=== PATIENT | female | born 1995 | race Caucasian/White ===

== ENCOUNTER → 2018-10-29 | Outpatient (CLI) | payer MEDICAID ==
[~2018-10-29] MED LIST: ACYC200C PO; FERR-47 PO; PERM60CR10 TOP; PREN-46 PO; birth control PO
--- NOTE | 2018-10-29 12:11 | Diagnostic Imaging Report ---
INDICATION: dating. FINDINGS: There is an intrauterine gestational sac containing a pole. The crown/rump measures approximately 3 mm, consistent with a 6 week 0 day gestation. The heart rate was detected at 102 BPM. There is a yolk sac present. No perigestational sac hemorrhage is seen. The gestational sac shape is within normal limits. Adnexal evaluation demonstrates the ovaries to be unremarkable. There is blood flow to both ovaries. There is no free fluid. IMPRESSION: Single live IUP of approximately 6 weeks gestational age. The estimated date of confinement sonographically is 06/21/2019. Dictated by: Dictated on workstation # [id number]
== END ==
LOC: RAD 10:29
PROVIDERS: ATTEND Family Medicine
DX: Z34.91 Encounter for supervision of normal pregnancy, unspecified, first trimester (principal); Z3A.01 Less than 8 weeks gestation of pregnancy
CPT/HCPCS: 76801; 76817

== ENCOUNTER → 2019-01-25 | Outpatient (CLI) | payer MEDICAID ==
--- NOTE | 2019-01-25 16:51 | Diagnostic Imaging Report ---
INDICATION: survey. TECHNIQUE: Multiple real-time grayscale images were obtained over the gravid uterus. COMPARISON: 10/29/2018. FINDINGS: There is a single live fetus in a cephalic presentation. heart rate was recorded at 147 beats per minute. Placenta is anterior. Amniotic fluid volume appears normal. survey demonstrates kidneys, bladder, and stomach to be unremarkable. brain is unremarkable. There is a four-chamber heart. There is a three-vessel cord with normal insertion. The spine is unremarkable. Maternal cervical length is 3.9 cm. Biometrical measurements are as follows: Biparietal 4.39 cm, age 19 weeks 2 days. Head circumference 15.99 cm, age 18 weeks 6 days. Abdominal circumference 12.2 cm, age 18 weeks 0 days. Femur length 2.84 cm, age 18 weeks 5 days. Sonographic estimate age: 18 weeks 5 days. Sonographic estimated date of delivery: 06/23/2019. Estimated Weight: 236 gm (+/- 34 gm). LMP percentile: 14%. heart rate: 147 beats per minute. number: 1 of 1. IMPRESSION: Single live IUP of approximately 18 weeks 5 days gestational age showing normal interval growth when compared with prior exam. No complicating features are seen. Dictated by: Dictated on workstation # [id number]
== END ==
LOC: RAD 12:57
PROVIDERS: ATTEND Family Medicine
DX: Z36.89 Encounter for other specified antenatal screening (principal); Z3A.18 18 weeks gestation of pregnancy
CPT/HCPCS: 76805

== ENCOUNTER 2019-06-13 23:00 | Inpatient (IN) | payer MEDICAID ==
[~2019-06-13] VITALS: Ht 160 cm; Wt 73.6 kg
--- NOTE | 2019-06-13 23:05 | NUR ---
CECY MCDANIEL presented to unit via wheelchair from ED, accompanied by s/o, with c/o CONTRACTIONS. CECY MCDANIEL weighed, gowned, voided, and to bed. EFHM and TOCO applied, VS taken. CECY MCDANIEL oriented to bed controls, call light, TV, heat, and A/C controls.
[2019-06-13 23:20] VITALS: BP 139/77
[2019-06-13] MEDS ORDERED: PREN-53 PO (23:48)
[2019-06-13] MEDS ORDERED: omeprazole (23:51)
[2019-06-13] MEDS ORDERED: D5 LR IV SOLUTION 1,000 ML IV ONE (23:53)
[2019-06-14] VITALS (52 sets, daily range): BP systolic 100–154; BP diastolic 54–92
[2019-06-14] MEDS ORDERED: MINERAL OIL CONCENTRATE 99.9% 15 ML UDC TOP PRN (00:15)
[2019-06-14] MEDS: D5 LR IV SOLUTION 1,000 ML IV SCH ×2 (00:15→07:55)
[2019-06-14 00:24] LABS: BASOPHILS % (AUTO) 0 % (0-10); EOSINOPHILS # (AUTO) 0.1 10^3/uL (0.0-0.3); EOSINOPHILS % (AUTO) 1 % (0-10); HEMATOCRIT 33 % (35-52); HEMOGLOBIN 11.2 G/DL (11.5-16.0); LYMPHOCYTES # (AUTO) 2.8 X 10^3 (1.0-4.0); LYMPHOCYTES % (AUTO) 24 % (12-44); MEAN CORPUSCULAR HEMOGLOBIN 28 PG (25-34); MEAN CORPUSCULAR HGB CONC 34 G/DL (32-36); MEAN CORPUSCULAR VOLUME 82 FL (80-99); MEAN PLATELET VOLUME 10.6 FL (7.4-10.4); MONOCYTES # (AUTO) 0.7 X 10^3 (0.0-1.0); MONOCYTES % (AUTO) 6 % (0-12); NEUTROPHILS # (AUTO) 7.8 X 10^3 (1.8-7.8); NEUTROPHILS % (AUTO) 69 % (42-75); PLATELET COUNT 196 10^3/uL (130-400); RED CELL DISTRIBUTION WIDTH 13.2 % (10.0-14.5); WHITE BLOOD COUNT 11.4 10^3/uL (4.3-11.0)
[2019-06-14] MEDS ORDERED: CATHETER FLUSH 10 ML SYR IV SCH ×2 (06:00→22:00)
--- NOTE | 2019-06-14 07:05 | History & Physical-OB ---
OB - Chief Complaint & HPI Date/Time Date of Admission: Date of Admission: Jun 14, 2019 at 00:00 Date seen by a Provider: Jun 14, 2019 Time Seen by a Provider: 07:05 Chief Complaint/History OB-Reason for Admission/Chief: Onset of Labor Hx : 3 Hx Para: 2 Expected Date of Delivery: Jun 21, 2019 Gestational Age in Weeks: 39 Gestational Age in Days: 0 Admission Nurse Assessment Rev: Yes History of Labs GBS negative Allergies and Home Medications Allergies Coded Allergies: No Known Drug Allergies (Unverified , 01/25/14) Home Medications [id number]/Iron Fumarate/FA/Dss 1 Each Tablet, 1 EACH PO DAILY, (Reported) [omeprazole] , DAILY, (Reported) Patient Home Medication List Home Medication List Reviewed: Yes OB - History Hx of Present Care: Yes Ultrasounds: Normal mid trimester US Obstetrical Complications: None Medical Complications: None Obstetrical History Hx Termination: No Hx Multiple Gestation: No Hx Stillbirth: No Hx Complication: No Hx Induced Hypertens: No Hx Maternal Gestational Diabet: No Delivery History Hx Dystocia: No Hx Large For Gestational Age I: No Hx Small for Gestational Age I: No Hx Section: No Hx Vaginal Delivery Post C-Sec: No Hx Blood Disorders: No Adverse Rxn to Tranfusion: No Patient Past Medical History No chronic medical problems Social History/Family History HIV/AIDS: No Sexually Transmitted Disease: No Alcohol Use: Denies Use Recreational Drug Use: No Immunizations Tetanus Booster (TDap): Unknown OB - Admission Exam Physical Exam Vitals: Vital Signs 06/14/19 06:00 Pulse 73 Resp 16 B/P (MAP) 100/54 (69) HEENT: Moist Membranes Heart: Rhythm Normal Lungs: Clear Abdomen: Gravid Cervical Dilatation: 3cm Effacement: 75% Station: -3 Membranes: Intact Heart Rate: 140's Accelerations: Accelerations Present Short Term Variability: Present Halfway Variability: Average (6-25) Contractions on Admission: 6-10 Minutes Apart Intensity: Mild Labs Laboratory Tests Test 06/14/19 00:15 Range/Units White Blood Count 11.4 H 4.3-11.0 10^3/uL Red Blood Count 4.07 L 4.35-5.85 10^6/uL Hemoglobin 11.2 L 11.5-16.0 G/DL Hematocrit 33 L 35-52 % Mean Corpuscular Volume 82 80-99 FL Mean Corpuscular Hemoglobin 28 25-34 PG Mean Corpuscular Hemoglobin Concent 34 32-36 G/DL Red Cell Distribution Width 13.2 10.0-14.5 % Platelet Count 196 130-400 10^3/uL Mean Platelet Volume 10.6 H 7.4-10.4 FL Neutrophils (%) (Auto) 69 42-75 % Lymphocytes (%) (Auto) 24 12-44 % Monocytes (%) (Auto) 6 0-12 % Eosinophils (%) (Auto) 1 0-10 % Basophils (%) (Auto) 0 0-10 % Neutrophils # (Auto) 7.8 1.8-7.8 X 10^3 Lymphocytes # (Auto) 2.8 1.0-4.0 X 10^3 Monocytes # (Auto) 0.7 0.0-1.0 X 10^3 Eosinophils # (Auto) 0.1 0.0-0.3 10^3/uL Basophils # (Auto) 0.0 0.0-0.1 10^3/uL OB - Assessment/Plan/Diagnosis Assessment Assessment: active labor (at 39 weeks gestation) Admission Dx 1. IUP at term 39 weeks gestation Admission Status: Inpatient Order (span 2 midnights) Reason for Inpatient Admission: L&D Plan Plan: Other Other Plan -plan on AROM -pitocin as needed BROOKLYN CEE MD Jun 14, 2019 07:05
[2019-06-14] MEDS ORDERED: OXYTOCIN/NORMAL SALINE 500 ML IV ONE (07:41)
[2019-06-14] MEDS ORDERED: OXYTOCIN/NORMAL SALINE 500 ML IV SCH ×2 (07:42→15:20)
[2019-06-14] MEDS ORDERED: ONDANSETRON 4 MG/2 ML (SDV) Z0FRAN ONE (09:39)
[2019-06-14] MEDS ORDERED: ONDANSETRON 4 MG/2 ML (SDV) Z0FRAN IVP PRN (09:45)
[2019-06-14] MEDS ORDERED: BUTORPHANOL INJ 2 MG/ML (STADOL) VIAL ONE (10:56)
[2019-06-14] MEDS ORDERED: BUTORPHANOL INJ 2 MG/ML (STADOL) VIAL IV PRN (11:00)
[2019-06-14] MEDS ORDERED: SUFENTA 0.6MCG/ML BUPIVA 0.125 100 ML ONE (12:29)
[2019-06-14] MEDS ORDERED: BUPIVACAINE 0.25% 30 ML (SENSORCAINE) VIAL ONE (12:45)
[2019-06-14] MEDS ORDERED: fentaNYL INJECTION 100 MCG/2 ML AMP ONE (12:46)
--- NOTE | 2019-06-14 12:53 | NUR ---
1253 Dr. YIP here for epidural placement. Procedure explained, consent reviewed and signed by anesthesia. Questions answered to patient's satisfaction. Time out taken to verify correct patient/procedure. 1255 Patient up to side of bed, assisted into sitting position. 1258 Betadine prep done x3 and sterile drape applied. 1301 Local done, see anesthesia record. 1314 Test dose given, see anesthesia record for drug and dosage. Epidural catheter secured in place. Epidural placement complete. 1319 Assisted back into bed, monitors adjusted. Epidural dosed, see anesthesia record. Epidural of Sufenta/Bupvicaine @12cc/hr stated per pump. Patient tolerated procedure well.
[2019-06-14] MEDS ORDERED: LACTATED RINGERS 1,000 ML IV ONE (13:28)
[2019-06-14] MEDS ORDERED: NALOXONE 0.4 MG/ML 1 ML (NARCAN) VIAL IV PRN (13:30)
[2019-06-14] MEDS ORDERED: CATHETER FLUSH 10 ML SYR IV PRN (13:30)
[2019-06-14] MEDS ORDERED: ONDANSETRON 4 MG/2 ML (SDV) Z0FRAN IV PRN (13:30)
[2019-06-14] MEDS ORDERED: diphenhydrAMINE 50 MG/ML INJ (BENADRYL) IV PRN (13:30)
[2019-06-14] MEDS ORDERED: EPIDURAL (SUFENTA 0.6MCG/ML BUPIVA 0.125%) 100 ML BAG EPI SCH (13:30)
[2019-06-14] MEDS ORDERED: MEASLES,MUMPS,RUBELLA 1 EA INJ SQ ONE (15:30)
[2019-06-14] MEDS ORDERED: BENZOCAINE/MENTHOL (DERMOPLAST) 56 ML CAN TP PRN (15:30)
[2019-06-14] MEDS ORDERED: WITCH HAZEL(TUCKS) 40 EA JAR TOP PRN (15:30)
[2019-06-14] MEDS ORDERED: TETANUS,DIPTH,PERTUSS P/F (BOOSTRIX) 0.5 ML VIAL IM ONE (15:30)
--- NOTE | 2019-06-14 15:34 | OB Labor & Delivery Record ---
L&D History Date of Service Date of Service: Jun 14, 2019 History Expected Date of Delivery: Jun 21, 2019 Gestational Age in Weeks: 39 Hx : 3 Hx Para: 2 Complications Events: Routine care Operative Indications (Cesarea: N/A-Vaginal Delivery Intrapartal Events: None L&D Stage1 Stage One Onset of Labor - Date: Jun 14, 2019 Onset of Labor - Time: 07:15 Monitors and Tracing Monitor Mode: Internal Heart Rate: 135 Monitor Accelerations: Uniform Station: -2 Vital Signs VS - Last 72 Hours, by Label 06/13/19 06/14/19 06/14/19 06/14/19 23:20 01:25 03:00 04:00 Pulse 87 68 71 Resp 16 16 B/P (MAP) 139/77 (97) 120/68 (85) 100/57 (71) 06/14/19 06/14/19 06/14/19 06/14/19 05:00 06:00 07:00 07:30 Temp 97.3 Pulse 111 73 71 67 Resp 16 16 16 18 B/P (MAP) 115/68 (84) 100/54 (69) 121/73 (89) 115/69 (84) O2 Delivery Room Air 06/14/19 06/14/19 06/14/19 06/14/19 08:00 08:15 08:30 08:45 Pulse 67 71 75 80 Resp 18 18 18 18 B/P (MAP) 113/70 (84) 123/78 (93) 123/80 (94) 121/79 (93) O2 Delivery Room Air Room Air Room Air Room Air 06/14/19 06/14/19 06/14/19 06/14/19 09:00 09:15 09:30 09:45 Temp 97.6 Pulse 80 73 70 72 Resp 18 18 18 18 B/P (MAP) 125/81 (96) 120/79 (93) 143/87 (105) 129/82 (98) O2 Delivery Room Air Room Air Room Air Room Air 06/14/19 06/14/19 06/14/19 06/14/19 10:00 10:15 10:30 10:45 Pulse 78 77 71 80 Resp 18 18 18 18 B/P (MAP) 117/60 (79) 116/58 (77) 112/68 (83) 108/67 (81) O2 Delivery Room Air Room Air Room Air Room Air 06/14/19 11:00 Pulse 68 Resp 18 B/P (MAP) 110/83 (92) O2 Delivery Room Air Signs of Distress by FHT Signs of Distress no Rupture of Membranes Spontaneous Ruture of Membrane: No Amniotic Membrane Rupture Time: 0712 Amniotic Membrane Fluid Desc.: Clear Induction/Anesthesia Epidural Cath Placement - Time: 1313 L&D Stage2 Stage Two Stage II Date: Jun 14, 2019 Stage II Time: 13:47 Monitors and Tracing Monitor Mode: Internal Heart Rate: 135 Monitor Accelerations: Uniform Monitor Decelerations: Early Director Of Development Variability: Average (6-10) Short Term Variability: Present Position: Left Occiput Anterior Presentation: Vertex Signs of Distress by FHT Signs of Distress no Cord Descript/Complications Cord Vessel Description: 3 Vessels Delivery Type Delivery Method: Spontaneous Vaginal Anterior Shoulder: Left Episiotomy/Perineal Laceration Laceraction(s)/Extensions: No Condition of Infant Delivery 1 minute Comment: 8 5 minute Comment: 9 Condition of Condition of : Living Exam: No Observed Abnormalities Resuscitation Resuscitation: N/A - Spontaneous Resp L&D Stage3 Stage Three Stage III Date: Jun 14, 2019 Stage III Time: 13:52 Pictocin Pitocin Administration mu/min: 6 Pitocin ml/hr: 6 Pitocin Administration Comment: 0859 PITOCIN INCREASED. Placenta Delivery Placenta Delivery: Spontaneous Delivery Summary Summary Estimated blood loss (mL): 100 Condition of Delivery Examined: Cervix Examined Post Hemorrhage: No BROOKLYN CEE MD Jun 14, 2019 15:34
[2019-06-14] MEDS: IBUPROFEN 600 MG (MOTRIN) TAB PO SCH ×2 (17:18→23:39)
--- NOTE | 2019-06-14 17:41 | NUR ---
REFER TO LABOR FLOW SHEET.
[2019-06-14] MEDS: DOCUSATE SODIUM 100 MG (COLACE) CAP PO SCH (20:09)
[2019-06-15 04:05] VITALS: BP 114/55
[2019-06-15] MEDS: IBUPROFEN 600 MG (MOTRIN) TAB PO SCH (05:43)
[2019-06-15 06:15] LABS: BASOPHILS % (AUTO) 0 % (0-10); EOSINOPHILS # (AUTO) 0.1 10^3/uL (0.0-0.3); EOSINOPHILS % (AUTO) 1 % (0-10); HEMATOCRIT 34 % (35-52); HEMOGLOBIN 11.2 G/DL (11.5-16.0); LYMPHOCYTES # (AUTO) 3.2 X 10^3 (1.0-4.0); LYMPHOCYTES % (AUTO) 26 % (12-44); MEAN CORPUSCULAR HEMOGLOBIN 27 PG (25-34); MEAN CORPUSCULAR HGB CONC 33 G/DL (32-36); MEAN CORPUSCULAR VOLUME 83 FL (80-99); MEAN PLATELET VOLUME 11.2 FL (7.4-10.4); MONOCYTES # (AUTO) 0.7 X 10^3 (0.0-1.0); MONOCYTES % (AUTO) 6 % (0-12); NEUTROPHILS # (AUTO) 8.3 X 10^3 (1.8-7.8); NEUTROPHILS % (AUTO) 67 % (42-75); PLATELET COUNT 161 10^3/uL (130-400); RED CELL DISTRIBUTION WIDTH 13.2 % (10.0-14.5); WHITE BLOOD COUNT 12.4 10^3/uL (4.3-11.0)
--- NOTE | 2019-06-15 07:13 | Anesthesia-Regional Post-Op ---
Regional Patient Condition Mental Status: Alert, Oriented x3 Circulation: Same as Pre-Op Headache: Absent Sensation: Full Recovery Motor Block: Absent Post Op Complications Complications None Follow Up Care/Instructions Patient Instructions None needed. Anesthesia/Patient Condition Patient is doing well, no complaints, stable vital signs, no apparent adverse anesthesia problems. No complications reported per nursing. GABRIELA RINCON CRNA Jun 15, 2019 07:13
[2019-06-15 08:30] VITALS: BP 115/57
[2019-06-15] MEDS ORDERED: TETANUS,DIPTH,PERTUSS P/F (BOOSTRIX) 0.5 ML VIAL IM ONE (08:35)
[2019-06-15] MEDS: ACETAMINOPHEN 500 MG TAB (TYLENOL) PO SCH ×2 (08:36→15:11)
[2019-06-15] MEDS: DOCUSATE SODIUM 100 MG (COLACE) CAP PO SCH (08:36)
[2019-06-15 12:25] VITALS: BP 121/70
--- NOTE | 2019-06-15 16:46 | Discharge Summary ---
Diagnosis/Chief Complaint Date of Admission Jun 14, 2019 at 00:00 Date of Discharge June 15, 2019 Discharge Date: Jun 15, 2019 Discharge Time: 17:00 Admission Diagnosis Admission Diagnosis 1. IUP at 39wks Discharge Diagnosis 1. IUP at 39wks Reason Hospital Visit 24-year-old 3 now term 3 who initially presented to labor and delivery at 39 weeks gestation for induction of labor. Patient had favorable cervix. Her care was essentially unremarkable. Discharge Summary-OBS Procedures 1. Epidural per anesthesia 2. Discharge Physical Examination Allergies: Coded Allergies: No Known Drug Allergies (Unverified , 01/25/14) Vitals & I&Os Vital Signs Date Time Temp Pulse Resp B/P (MAP) Pulse Ox O2 Delivery O2 Flow Rate FiO2 06/15/19 12:25 97.8 79 16 121/70 (87) 99 Room Air General Appearance: No Acute Distress Cardiovascular: Regular Rate Abdominal: Soft (with uterus firm) Hospital Course Was the Problem List Reviewed?: Yes Following admission patient underwent amniotomy with scalp electrode. P atient continued to contract and required low-dose Pitocin augmentation. She did receive epidural per anesthesia with excellent pain control during the course of labor. Ultimately she went on to deliver a term viable female over an intact perineum. Following delivery patient underwent routine care orders. She had no complications during the remainder of hospital stay. She tolerated regular diet. She had no shortness of breath or leg pain. Her hemoglobin the day after delivery was 11.2 compared to admission hemoglobin of 11.2. She was felt ready for dismissal during the afternoon of day number 1. All questions answered and she will follow up in 6 weeks. Discharge Instructions to patient/family Please see electronic discharge instructions given to patient. Discharge Medications Reviewed and agree with Discharge Medication list on patient's Discharge Instruction sheet Clinical Quality Measures DVT/VTE Risk/Contraindication: Risk Factor Score Per Nursin RFS Level Per Nursing on Admit: 1=Low/No VTE PPX BROOKLYN CEE MD Jun 15, 2019 16:45
== END 2019-06-15 16:15 | disposition home or self-care (01) | DRG 807 ==
LOC: WSo 23:00 → LDRP 23:00 → WSo 06-14 → LDRP 06-14
PROVIDERS: ADMIT Family Medicine; ATTEND Family Medicine
PROC: 10E0XZZ Delivery of Products of Conception, External Approach (ICD-10-PCS; principal; 2019-06-14)
DX: O80 Encounter for full-term uncomplicated delivery (principal); Z37.0 Single live birth; Z3A.39 39 weeks gestation of pregnancy; Z23 Encounter for immunization
CPT/HCPCS: 36415; 85025; 86850; 86900; 86901; 90715; 99212

== ENCOUNTER → 2022-08-12 14:35 | Inpatient (IN) | payer MEDICAID ==
[2022-08-11] VITALS (20 sets, daily range): BP systolic 115–150; BP diastolic 65–90
--- NOTE | 2022-08-11 06:53 | History & Physical-OB ---
OB - Chief Complaint & HPI Date/Time Date of Admission: Date of Admission: Aug 11, 2022 at 06:06 Date seen by a Provider: Aug 11, 2022 Time Seen by a Provider: 06:45 Chief Complaint/History OB-Reason for Admission/Chief: Induction of Labor Hx : 4 Hx Para: 3 Expected Date of Delivery: Aug 17, 2022 Gestational Age in Weeks: 39 Gestational Age in Days: 1 Admission Nurse Assessment Rev: Yes History of Labs GBS positive Allergies and Home Medications Allergies Coded Allergies: No Known Drug Allergies (Unverified , 01/25/14) Patient Home Medication List Home Medication List Reviewed: Yes [id number]/Iron Fumarate/FA/Dss ( 19 Tablet) 1 Each Tablet, 1 EACH PO DAILY, (Reported) Entered as Reported by: KENN SEGUNDO on 06/13/19 [id number] [omeprazole] , DAILY, (Reported) Entered as Reported by: KENN SEGUNDO on 06/13/19 8051 OB - History Hx of Present Care: Yes Ultrasounds: Normal mid trimester US Obstetrical Complications: None Medical Complications: None Obstetrical History Hx Termination: No Hx Multiple Gestation: No Hx Stillbirth: No Hx Complication: No Hx Induced Hypertens: No Hx Maternal Gestational Diabet: No Delivery History Hx Dystocia: No Hx Large For Gestational Age I: No Hx Small for Gestational Age I: No Hx Section: No Hx Vaginal Delivery Post C-Sec: No Hx Blood Disorders: No Adverse Rxn to Tranfusion: No Patient Past Medical History No chronic medical problems Immunizations Tetanus Booster (TDap): Unknown OB - Admission Exam Physical Exam HEENT: Moist Membranes Heart: Rhythm Normal Lungs: Clear Abdomen: Gravid Cervical Dilatation: 1cm Effacement: 50% Station: -3 Membranes: Intact Heart Rate: 130's Accelerations: Accelerations Present Short Term Variability: Present Contractions on Admission: >10 Minutes Apart Intensity: Mild Holland Scoring Tool (Modified) Dilation (cm): 1-2cm (1) Effacement (%): 31-51% (1) Descent/Station: -3 (0) Cervix Consistency: Medium(1) Cervix Position: Middle/Mid-Position (1) Add 1 point for: Each previous vaginal delivery (1) Holland Score: 7 OB - Assessment/Plan/Diagnosis Assessment Assessment: induction of labor Admission Dx 1. IUP at term 39w1d Admission Status: Inpatient Order (span 2 midnights) Reason for Inpatient Admission: L&D Plan Plan: Induction Induction Method: AROM Other Plan -GBS prophlaxis -epidural if desired -meñoocin BROOKLYN CEE MD Aug 11, 2022 06:53
[2022-08-11 07:04] LABS: BASOPHILS # (AUTO) 0.1 10^3/uL (0.0-0.1); BASOPHILS % (AUTO) 1 % (0-10); EOSINOPHILS # (AUTO) 0.2 10^3/uL (0.0-0.3); EOSINOPHILS % (AUTO) 2 % (0-10); HEMATOCRIT 33 % (35-52); HEMOGLOBIN 10.8 g/dL (11.5-16.0); LYMPHOCYTES # (AUTO) 4.4 10^3/uL (1.0-4.0); LYMPHOCYTES % (AUTO) 38 % (12-44); MEAN CORPUSCULAR HEMOGLOBIN 26 pg (25-34); MEAN CORPUSCULAR HGB CONC 33 g/dL (32-36); MEAN CORPUSCULAR VOLUME 80 fL (80-99); MEAN PLATELET VOLUME 10.4 fL (9.0-12.2); MONOCYTES # (AUTO) 0.5 10^3/uL (0.0-1.0); MONOCYTES % (AUTO) 5 % (0-12); NEUTROPHILS # (AUTO) 6.2 10^3/uL (1.8-7.8); NEUTROPHILS % (AUTO) 55 % (42-75); PLATELET COUNT 384 10^3/uL (130-400); WHITE BLOOD COUNT 11.4 10^3/uL (4.3-11.0)
--- NOTE | 2022-08-11 10:52 | OB Labor & Delivery Record ---
L&D History Date of Service Date of Service: Aug 11, 2022 History Expected Date of Delivery: Aug 17, 2022 Gestational Age in Weeks: 39 Hx : 4 Hx Para: 4 Complications Events: Routine care Operative Indications (Cesarea: N/A-Vaginal Delivery Intrapartal Events: None Other Complications GBS positive and received 1 dose of ampicillin L&D Stage1 Stage One Onset of Labor - Date: Aug 11, 2022 Onset of Labor - Time: 06:44 Monitors and Tracing Monitor Mode: Internal Heart Rate: 130 Monitor Accelerations: Uniform Monitor Decelerations: None Station: -3 Jail Variability: Average (6-10) Short Term Variability: Present Presentation: Vertex Vital Signs VS - Last 72 Hours, by Label 08/11/22 08/11/22 07:30 07:36 Temp 37.3 36.7 Pulse 88 99 Resp 18 16 B/P (MAP) 121/76 (91) Pulse Ox 99 99 O2 Delivery Room Air Room Air Signs of Distress by FHT Signs of Distress no Rupture of Membranes Spontaneous Ruture of Membrane: No Amniotic Membrane Rupture Time: 0644 Amniotic Membrane Fluid Desc.: Clear L&D Stage2 Stage Two Stage II Date: Aug 11, 2022 Stage II Time: 10:15 Monitors and Tracing Monitor Mode: Internal Heart Rate: 130 Monitor Accelerations: Uniform Monitor Decelerations: None Sales Planning Manager Variability: Average (6-10) Short Term Variability: Present Position: Left Occiput Anterior Presentation: Vertex Signs of Distress by FHT Signs of Distress no Cord Descript/Complications Cord Vessel Description: 3 Vessels Delivery Type Delivery Method: Spontaneous Vaginal Anterior Shoulder: Left Episiotomy/Perineal Laceration Laceraction(s)/Extensions: No Condition of Delivery 1 minute Comment: 8 5 minute Comment: 9 Condition of Infant Condition of Infant: Living Exam: No Observed Abnormalities Resuscitation Resuscitation: N/A - Spontaneous Resp L&D Stage3 Stage Three Stage III Date: Aug 11, 2022 Stage III Time: 10:20 Pictocin Pitocin ml/hr: 125 Placenta Delivery Placenta Delivery: Spontaneous Delivery Summary Summary Estimated blood loss (mL): 100 Condition of Delivery Examined: Cervix Examined Post Hemorrhage: No Intervention Required none BROOKLYN CEE MD Aug 11, 2022 10:52
[2022-08-11] MEDS: IBUPROFEN 600 MG (MOTRIN) TAB PO SCH ×2 (12:30→18:29)
[2022-08-11] MEDS: ACETAMINOPHEN 500 MG TAB (TYLENOL) PO SCH ×2 (12:30→18:29)
[2022-08-12] MEDS: IBUPROFEN 600 MG (MOTRIN) TAB PO SCH ×3 (00:45→12:09)
[2022-08-12] MEDS: ACETAMINOPHEN 500 MG TAB (TYLENOL) PO SCH ×3 (00:45→13:54)
[2022-08-12] MEDS: DOCUSATE SODIUM 100 MG (COLACE) CAP PO SCH ×2 (00:46→09:07)
[2022-08-12 00:48] VITALS: BP 126/74
[2022-08-12 04:58] VITALS: BP 118/73
--- NOTE | 2022-08-12 06:59 | Discharge Summary ---
Diagnosis/Chief Complaint Date of Admission Aug 11, 2022 at 06:06 Date of Discharge August 12, 2022 Discharge Date: Aug 12, 2022 Discharge Time: 12:00 Admission Diagnosis Admission Diagnosis 1. Intrauterine at 39 weeks Discharge Diagnosis 1. Intrauterine at 39 weeks Reason Hospital Visit 27-year-old 4 now term 4 who initially presented for labor and delivery during the morning of August 11, 2022. Her EDC was noted to be August 17, 2022. She was positive for GBS perineal check at 36 weeks gestation. Discharge Summary-OBS Procedures 1. Spontaneous vaginal delivery Discharge Physical Examination Allergies: Coded Allergies: No Known Drug Allergies (Unverified , 01/25/14) Vitals & I&Os Vital Signs Date Time Temp Pulse Resp B/P (MAP) Pulse Ox O2 Delivery O2 Flow Rate FiO2 08/12/22 04:58 36.1 52 16 118/73 (88) 99 Room Air General Appearance: Alert, No Acute Distress Respiratory: Clear to Auscultation Cardiovascular: Regular Rate Abdominal: Soft (With uterus firm) Skin: No Rashes Neuro: Normal Speech Hospital Course Was the Problem List Reviewed?: Yes Following admission in the morning of August 11, 2022 she underwent amniotomy with placement of scalp electrode. Patient required low-dose Pitocin augmentation to achieve adequate contraction. She did receive ampicillin 2 g loading dose upon admission for GBS prophylaxis. Patient continued to contract and dilate. She was requesting epidural but she was noted to be complete and therefore no epidural was placed. Patient delivered over an intact perineum a term viable male. See labor and delivery note for full details. Following delivery she underwent routine care orders. She had no complications during the remainder of hospital stay. She tolerated regular diet. She was noted to void without difficulty. She tolerated regular diet. She had no chest pain or shortness of breath there was no leg discomfort as well. She was felt ready for dismissal during the late morning of August 12, 2022 Discharge Instructions to patient/family Please see electronic discharge instructions given to patient. Discharge Medications Reviewed and agree with Discharge Medication list on patient's Discharge Instruction sheet BROOKLYN CEE MD Aug 12, 2022 06:59
--- NOTE | 2022-08-12 07:00 | Discharge Inst-Women's Service ---
Discharge Inst-Women's Serv Depart Medication/Instructions New, Converted or Re-Newed RX: Other Instructions May take [id number] ibuprofen 2 or 3 200 mg tablets every 6 hours if needed for cramps. Problems Reviewed?: Yes Consults/Follow Up Additional Follow Up: Yes (Dr. Cee in 6 weeks. ) Activity Driving Instructions: You May Drive Nothing Inside Vagina: No [place] (For 6 weeks) Diet Discharge Diet: Regular Diet Return to The Hospital For: As below Symptoms to Report to : Bleeding Excessive, Fever Over 101 Degrees F, Vaginal Discharge Foul For Any Problems or Questions: Contact Your Physician BROOKLYN CEE MD Aug 12, 2022 07:00
[2022-08-12 07:39] LABS: BASOPHILS # (AUTO) 0.1 10^3/uL (0.0-0.1); BASOPHILS % (AUTO) 1 % (0-10); EOSINOPHILS # (AUTO) 0.2 10^3/uL (0.0-0.3); EOSINOPHILS % (AUTO) 1 % (0-10); HEMATOCRIT 31 % (35-52); HEMOGLOBIN 10.2 g/dL (11.5-16.0); LYMPHOCYTES # (AUTO) 3.2 10^3/uL (1.0-4.0); LYMPHOCYTES % (AUTO) 28 % (12-44); MEAN CORPUSCULAR HEMOGLOBIN 27 pg (25-34); MEAN CORPUSCULAR HGB CONC 33 g/dL (32-36); MEAN CORPUSCULAR VOLUME 79 fL (80-99); MEAN PLATELET VOLUME 10.2 fL (9.0-12.2); MONOCYTES # (AUTO) 0.6 10^3/uL (0.0-1.0); MONOCYTES % (AUTO) 5 % (0-12); NEUTROPHILS # (AUTO) 7.6 10^3/uL (1.8-7.8); NEUTROPHILS % (AUTO) 65 % (42-75); PLATELET COUNT 326 10^3/uL (130-400); WHITE BLOOD COUNT 11.7 10^3/uL (4.3-11.0)
[2022-08-12 08:00] VITALS: BP 125/80
[2022-08-12 12:10] VITALS: BP 119/69
[2022-08-12 14:35] VITALS: BP 119/69
[~2022-08-12 14:35] MED LIST changes: +ACYC-108 PO; -ACYC200C PO; +AMPICILLIN 2,000 MG/14.8 ML (IV USE) ONE; +AMPICILLIN FOR IV USE 2,000 MG in NS (IVPB) 50 ML IV SCH; +BENZOCAINE/MENTHOL (DERMOPLAST) 56 ML CAN TP PRN; +BUPIVACAINE 0.25% 30 ML (SENSORCAINE) VIAL ONE; +CATHETER FLUSH 10 ML SYR IV SCH; +D5 LR IV SOLUTION 1,000 ML IV ONE; +D5 LR IV SOLUTION 1,000 ML IV SCH; +LIDOCAINE/EPI 2% 1:200,00 (XYLOCAINE) 10 ML VIAL ONE; +MEASLES,MUMPS,RUBELLA 1 EA INJ SQ ONE; +MINERAL OIL 30 ML UDC TOP PRN; +NALOXONE 0.4 MG/ML 1 ML (NARCAN) VIAL IV PRN; +OXYTOCIN PRE-MIX DRIP 500 ML IV SCH; +PREN-53 PO; +TETANUS,DIPTH,PERTUSS P/F (BOOSTRIX) 0.5 ML VIAL IM ONE; +WATER (STERILE) FOR INJECTION 0 ML ONE; +WITCH HAZEL(TUCKS) 40 EA JAR TOP PRN; +fentaNYL 2 mcg/ml BUPIVA 0.125 0 ML ONE; +fentaNYL INJ 100 MCG/2 ML AMP ONE; +omeprazole
== END | disposition home or self-care (01) | DRG 807 ==
LOC: LDRP 08-11 06:06
PROVIDERS: ADMIT Family Medicine; ATTEND Family Medicine
PROC: 10E0XZZ Delivery of Products of Conception, External Approach (ICD-10-PCS; principal; 2022-08-11)
PROC: 10907ZC Drainage of Amniotic Fluid, Therapeutic from Products of Conception, Via Natural or Artificial Opening (ICD-10-PCS; 2022-08-11)
PROC: 10H073Z Insertion of Monitoring Electrode into Products of Conception, Via Natural or Artificial Opening (ICD-10-PCS; 2022-08-11)
DX: O99.824 Streptococcus B carrier state complicating childbirth (principal); Z37.0 Single live birth; Z3A.39 39 weeks gestation of pregnancy; Z23 Encounter for immunization
CPT/HCPCS: 36415; 85025; 86850; 86900; 86901; 90715